=== PATIENT | male | born 1965 | race Caucasian/White ===

== ENCOUNTER 2019-02-13 06:46 | Day surgery (SDC) | payer BC, OTHER ==
[~2019-02-13] VITALS: Ht 185.4 cm; Wt 99.8 kg
[2019-02-13 07:35] VITALS: BP 115/76
[2019-02-13 10:47] VITALS: BP 115/76
--- NOTE | 2019-02-13 12:57 | O ---
[facility] [place] [address] OPERATIVE REPORT Name: DWAYNE PATTON Room #: 150-2 [facility]..#: [id number] Admission: 02/13/19 Attend Phys: Lacho Marquez MD Discharge: Date of : 69 Report #: [id number] THIS REPORT FOR: //name// CC: Lacho Marquez [facility] physician/PCP DATE OF SERVICE: 02/13/2019 PREOPERATIVE DIAGNOSIS: Herniated lumbar disk L5-S1 left with radiculopathy. POSTOPERATIVE DIAGNOSIS: Herniated lumbar disk L5-S1 left with radiculopathy. PROCEDURE: Decompressive lumbar laminectomy and diskectomy, L5-S1, left. SURGEON: Lacho Marquez MD INDICATIONS: This 53-year-old gentleman complains of sudden onset of back pain and radiating left leg pain several weeks ago. His back pain is improved, but he still has left leg pain with some numbness and weakness. Clinical exam is consistent with left-sided radiculopathy. MRI study reveals some multilevel degenerative disk change with mild disk bulging at L3-L4 and L4-L5, but this is more central and toward the right side. There is a large extruded disk herniation at L5-S1 toward the left, which seems to correspond with his left-sided radiculopathy symptoms. We discussed treatment options and elected to go ahead with surgical laminectomy and diskectomy. DESCRIPTION OF PROCEDURE: The patient was placed under general anesthesia. Prophylactic intravenous antibiotics were administered. He was turned to the prone position. The lower back was meticulously prepped and draped. C-arm views were used to localize the appropriate level. A skin incision was made over the L5-S1 interspace slightly to the left of midline. This was carried through fascia and muscle was retracted out laterally exposing the lamina. A small laminotomy in the inferior aspect of L5 and the superior aspect of S1 was created. A second C-arm view was obtained with a probe in the canal rather confirming that I was at the appropriate L5-S1 level slightly larger laminectomy was performed and the ligamentum was excised allowing good visualization. The S1 nerve root was found to be rather erythematous and enlarged and seemed to be displaced by a moderately sized disk herniation. The nerve root and dura were freed up and retracted gently toward the midline creating good exposure of the underlying disk. A moderate sized extruded disk fragment was identified and removed. There was an obvious opening in the annulus, which was explored. A good deal of additional degenerative disk debris was removed from the disk space itself using pituitary rongeurs. A C-arm view with a small probe in the disk space was obtained confirming that I was at the appropriate L5-S1 level. The disk is still mildly prominent and the annulus is somewhat firm. The nucleus was thoroughly debrided, which did improve the bulge significantly. The nerve [address] [address] OPERATIVE REPORT Name: POOJADWAYNE LÓPEZ Room #: 150-2 [facility].R.#: [id number] Admission: 02/13/19 Attend Phys: Lacho Marquez MD Discharge: Date of : 69 Report #: [id number] root was traced out the neural foramina and seemed to be freed up nicely. The canal was carefully inspected proximally, distally and across the midline. No other loose fragments were identified. I considered exploring the L4-L5 level in our discussion preoperatively, but this is a small midline disk bulge and does not seem to correspond with his left-sided radiculopathy symptoms. I elected not to proceed with other levels with exploration at this time. The wound was thoroughly irrigated. Good hemostasis was established, 40 mg of Depo-Medrol were left in the epidural space surrounding the nerve. The laminotomy defect was covered with a small sheet of Gelfoam soaked in thrombin. The muscle and fascia were closed with multiple #1 Vicryl sutures. The subcutaneous tissues were closed with 0 Monocryl. The skin was closed with 2-0 Prolene and Steri-Strips. A sterile dressing was applied. The patient was awakened and returned to recovery room in good condition. He hopes to go home from the hospital today. We will watch from the recovery room for appropriate period and then discharged when he is comfortable and safe. If he is having more problems, we may keep him for extended observation either through the day or overnight. I have asked family to call me if there are any problems or questions. We will otherwise plan to see him back in the office in about 10 days for followup and suture removal. <ELECTRONICALLY SIGNED> By: Lacho Marquez MD 02/13/19 1257 [id number] Lacho Marquez MD /nt
--- NOTE | 2019-02-16 17:06 | PATH ---
[facility] [address] [place] [address] PATHOLOGY RPT PROCEDURE Name: DWAYNE VALDOVINOS Room #: DEP [facility] M.R.#: [id number] Admission: 02/13/19 Date of : 69 Discharge: 02/13/19 Report #: [id number] Path Case #: [id number] [facility] Accession Number: [id number] . 01 Material submitted: . vertebral column - LUMBAR 5-SACRAL 1 DISC . 01 Clinical history: . Other intervertebral disc displacement, lumbar region. Unspecified thoracic. Thoracolumbar and lumbo-sacral in vertebrae Disc disorder. Sprain of ligament of lumbar spine. . 02 Diagnosis: Disc material, lumbar 5/sacral 1, discectomy: - Myxoid and hyaline cartilaginous material, compatible with nucleus pulposus material. - Fragments of dense fibrous tissue with reactive changes. ([facility]:mick; 02/16/2019) [facility] 02/16/2019 1311 Local . 02 Electronically signed: . Enriqueta Valentin MD, Pathologist NPI- [id number] . 01 Gross description: . The specimen is received in formalin, labeled "Dwayne Valdovinos, lumbar 5/sacral 1 disc", are multiple irregular fragments of watson-yellow and gritty tissue possibly admixed with bone spicule measuring 2.0 x 2.0 x 0.4 cm in aggregate. Representatively submitted in A1, after decalcification. ([facility]; 02/13/2019) [facility] 02/13/[address] [place] [address] . 02 Pathologist provided ICD-10: M51.27 . 02 CPT . 238872, 454116 Specimen Comment: A courtesy copy of this report has been sent to [phone] Specimen Comment: Report sent to Performed at: [address], [place], [place] [id number] MD Rashard Wren MD Phone: [phone] Performed at: [address] [id number] MD Enriqueta Valentin MD Phone: [phone]
== END 2019-02-13 11:50 | disposition home or self-care (01) ==
LOC: OR 06:46 → TBA 09:00 → OR 09:50
DX: M51.16 Intervertebral disc disorders with radiculopathy, lumbar region (principal); Z98.890 Other specified postprocedural states
CPT/HCPCS: 50010; 50101; 50402; 50704; 50850; 56525; 62110; 62900; 65130; 70005